=== PATIENT | male | born 1940 | race Caucasian/White ===

== ENCOUNTER 2018-01-13 00:39 | Inpatient (IN) | payer MEDICARE ==
[~2018-01-13] VITALS: Ht 188 cm; Wt 112.7 kg
[2018-01-13] MEDS ORDERED: CARVEDILOL6.25 MG PO (01:01)
[2018-01-13] MEDS ORDERED: ASPIRINCHW 81MG PO (01:01)
[2018-01-13] MEDS ORDERED: TAMSULOSIN HCL0.4 MG PO (01:01)
[2018-01-13] MEDS ORDERED: GLUCOTROL10 MG PO (01:02)
[2018-01-13] MEDS ORDERED: INVOKANA300 MG PO (01:02)
[2018-01-13 02:18] LABS: URINE BILIRUBIN - DIPSTICK NEGATIVE (NEGATIVE); URINE BLOOD DIPSTICK NEGATIVE (NEGATIVE); URINE COLOR YELLOW; URINE GLUCOSE - DIPSTICK >=1000 mg/dL (NEGATIVE); URINE KETONE TRACE mg/dL (NEGATIVE); URINE LEUK ESTERASE NEGATIVE (NEGATIVE); URINE NITRITE - DIPSTICK NEGATIVE (Negative); URINE PROTEIN - DIPSTICK NEGATIVE (NEG-TRACE); URINE SPECIFIC GRAVITY 1.015; URINE UROBILINOGEN - DIPSTICK 0.2 E.U./dL (0.2)
[2018-01-13 02:21] LABS: HEMATOCRIT 48.4 % (39.0-50.0); IMMATURE GRANULOCYTES 0.5 % (0.0-1.0); MEAN CELL VOLUME 87.5 fL CALC (80.0-100.0); MEAN CORPUSCULAR HGB 28.9 pG CALC (26.0-32.0); MEAN CORPUSCULAR HGB CONC 33.1 g/L CALC (32.0-36.0); NEUT# 8.09 thou/uL (1.82-7.42); RED BLOOD COUNT 5.53 mill/uL (4.70-6.10); RED CELL DISTRI WIDTH 14.2 % (11.5-15.5)
[2018-01-13 02:27] LABS: URINE CLARITY CLEAR
[2018-01-13 02:37] LABS: ALBUMIN 4.1 g/dL (3.2-5.0); ALKALINE PHOSPHATASE 118 u/l (38-126); ANION GAP 17 (6-22 (CALC)); BILIRUBIN, TOTAL 0.6 mg/dL (0.0-1.4); BUN 22 mg/dL (8-23); BUN/CREATININE RATIO 18 (12-20 (CALC)); CARBON DIOXIDE 23 mmol/l (22-30); CHLORIDE 108 mmol/l (95-108); CREATININE 1.2 mg/dL (0.7-1.3); GFR 59 ML/MIN (>=60 (CALC)); GFR FOR AFR.AMER. > 60 ML/MIN (>=60 (CALC)); LIPASE 103 u/l (23-300); POTASSIUM 4.1 mmol/l (3.5-5.1); SGOT/AST 23 u/l (19-48); SGPT/ALT 34 u/l (11-66); SODIUM 143 mmol/l (137-146); TOTAL PROTEIN 6.5 g/dL (6.3-8.2)
[2018-01-13 05:35] VITALS: BP 173/91
[2018-01-13 08:00] VITALS: BP 141/82
[2018-01-13] MEDS ORDERED: METFORMIN1000 MG PO (14:27)
[2018-01-13 17:02] VITALS: BP 141/80
[2018-01-13 21:00] VITALS: BP 155/73
[2018-01-14] VITALS (10 sets, daily range): BP systolic 115–160; BP diastolic 62–77
[2018-01-14 05:43] LABS: HEMATOCRIT 45.3 % (39.0-50.0); HEMOGLOBIN 14.6 g/dl (14.0-18.0); IMMATURE GRANULOCYTES 0.6 % (0.0-1.0); MEAN CELL VOLUME 89.5 fL CALC (80.0-100.0); MEAN CORPUSCULAR HGB 28.9 pG CALC (26.0-32.0); MEAN CORPUSCULAR HGB CONC 32.2 g/L CALC (32.0-36.0); NEUT# 13.34 thou/uL (1.82-7.42); RED BLOOD COUNT 5.06 mill/uL (4.70-6.10); RED CELL DISTRI WIDTH 14.6 % (11.5-15.5)
[2018-01-14 06:06] LABS: ALKALINE PHOSPHATASE 76 u/l (38-126); ANION GAP 16 (6-22 (CALC)); BILIRUBIN, TOTAL 1.9 mg/dL (0.0-1.4); BUN 18 mg/dL (8-23); BUN/CREATININE RATIO 18 (12-20 (CALC)); CARBON DIOXIDE 23 mmol/l (22-30); CHLORIDE 105 mmol/l (95-108); GFR > 60 ML/MIN (>=60 (CALC)); GFR FOR AFR.AMER. > 60 ML/MIN (>=60 (CALC)); MAGNESIUM 1.9 mg/dL (1.6-2.3); POTASSIUM 3.9 mmol/l (3.5-5.1); SGOT/AST 54 u/l (19-48); SGPT/ALT 56 u/l (11-66); SODIUM 141 mmol/l (137-146); TOTAL PROTEIN 5.2 g/dL (6.3-8.2)
[2018-01-14] MEDS ORDERED: AMARYL4 MG PO (10:16)
[2018-01-14] MEDS ORDERED: JANUVIA100 MG PO (10:16)
[2018-01-14] MEDS ORDERED: CADUET10 MG/40 M PO (10:17)
[2018-01-14] MEDS ORDERED: LOSARTAN POT50 MG PO (10:17)
[2018-01-14] MEDS ORDERED: VITAMIN D-32000 UNI1 PO (10:19)
[2018-01-15 00:25] VITALS: BP 149/74
[2018-01-15 04:28] VITALS: BP 145/74
[2018-01-15 05:40] LABS: HEMATOCRIT 41.4 % (39.0-50.0); HEMOGLOBIN 13.6 g/dl (14.0-18.0); IMMATURE GRANULOCYTES 0.4 % (0.0-1.0); MEAN CELL VOLUME 89.2 fL CALC (80.0-100.0); MEAN CORPUSCULAR HGB 29.3 pG CALC (26.0-32.0); MEAN CORPUSCULAR HGB CONC 32.9 g/L CALC (32.0-36.0); NEUT# 10.35 thou/uL (1.82-7.42); RED BLOOD COUNT 4.64 mill/uL (4.70-6.10); RED CELL DISTRI WIDTH 14.3 % (11.5-15.5)
[2018-01-15 05:59] LABS: ALBUMIN 2.7 g/dL (3.2-5.0); ALKALINE PHOSPHATASE 77 u/l (38-126); ANION GAP 13 (6-22 (CALC)); BILIRUBIN, TOTAL 1.2 mg/dL (0.0-1.4); BUN 18 mg/dL (8-23); BUN/CREATININE RATIO 17 (12-20 (CALC)); CARBON DIOXIDE 24 mmol/l (22-30); CHLORIDE 106 mmol/l (95-108); CREATININE 1.1 mg/dL (0.7-1.3); GFR > 60 ML/MIN (>=60 (CALC)); GFR FOR AFR.AMER. > 60 ML/MIN (>=60 (CALC)); POTASSIUM 3.8 mmol/l (3.5-5.1); SGOT/AST 30 u/l (19-48); SGPT/ALT 47 u/l (11-66); SODIUM 139 mmol/l (137-146); TOTAL PROTEIN 4.8 g/dL (6.3-8.2)
[2018-01-15 11:12] VITALS: BP 149/74
[2018-01-15 15:43] VITALS: BP 147/70
[2018-01-15 19:00] VITALS: BP 157/75
[2018-01-15 23:52] VITALS: BP 152/78
[2018-01-16 05:05] VITALS: BP 167/85
[2018-01-16 06:28] LABS: HEMATOCRIT 41.3 % (39.0-50.0); HEMOGLOBIN 13.5 g/dl (14.0-18.0); IMMATURE GRANULOCYTES 0.6 % (0.0-1.0); MEAN CELL VOLUME 87.9 fL CALC (80.0-100.0); MEAN CORPUSCULAR HGB 28.7 pG CALC (26.0-32.0); MEAN CORPUSCULAR HGB CONC 32.7 g/L CALC (32.0-36.0); NEUT# 7.42 thou/uL (1.82-7.42); RED BLOOD COUNT 4.7 mill/uL (4.70-6.10)
[2018-01-16 06:39] LABS: ALBUMIN 2.7 g/dL (3.2-5.0); ALKALINE PHOSPHATASE 88 u/l (38-126); ANION GAP 13 (6-22 (CALC)); BILIRUBIN, TOTAL 0.8 mg/dL (0.0-1.4); BUN 16 mg/dL (8-23); BUN/CREATININE RATIO 16 (12-20 (CALC)); CARBON DIOXIDE 24 mmol/l (22-30); CHLORIDE 107 mmol/l (95-108); GFR > 60 ML/MIN (>=60 (CALC)); GFR FOR AFR.AMER. > 60 ML/MIN (>=60 (CALC)); POTASSIUM 3.6 mmol/l (3.5-5.1); SGOT/AST 23 u/l (19-48); SGPT/ALT 38 u/l (11-66); SODIUM 141 mmol/l (137-146)
[2018-01-16 07:30] VITALS: BP 161/82
[2018-01-16 11:00] VITALS: BP 143/74
[2018-01-16] MEDS ORDERED: FLORASTOR250 M1 PO (12:05)
[2018-01-16] MEDS ORDERED: LORTAB5 PO (12:05)
[2018-01-16] MEDS ORDERED: METRONIDAZOL500 MG PO (12:05)
[2018-01-16] MEDS ORDERED: CIPROFLOXACN500 MG PO (12:05)
== END 2018-01-16 13:26 | disposition home or self-care (01) | DRG 854 ==
LOC: ED 00:39 → ED-I 04:00 → ED 05:11 → MS2 05:12 → ICU 05:12 → MS2 13:07 → ICU 14:05 → MS2 01-14 13:22
PROVIDERS: Family Medicine; Nurse Practitioner Family; ADMIT Internal Medicine; ATTEND Internal Medicine
PROC: 0FT44ZZ Resection of Gallbladder, Percutaneous Endoscopic Approach (ICD-10-PCS; principal; 2018-01-13)
PROC: BF001ZZ Plain Radiography of Bile Ducts using Low Osmolar Contrast (ICD-10-PCS; 2018-01-13)
PROC: 5A09357 Assistance with Respiratory Ventilation, Less than 24 Consecutive Hours, Continuous Positive Airway Pressure (ICD-10-PCS; 2018-01-13)
DX: A41.9 Sepsis, unspecified organism (principal); K80.00 Calculus of gallbladder with acute cholecystitis without obstruction; G47.36 Sleep related hypoventilation in conditions classified elsewhere; E11.9 Type 2 diabetes mellitus without complications; I10 Essential (primary) hypertension; G47.30 Sleep apnea, unspecified; N40.0 Benign prostatic hyperplasia without lower urinary tract symptoms; I44.7 Left bundle-branch block, unspecified; Z79.84 Long term (current) use of oral hypoglycemic drugs; Z87.442 Personal history of urinary calculi
CPT/HCPCS: J2710; Q9967